=== PATIENT | male | born 1985 | race Caucasian/White ===

== ENCOUNTER 2018-07-22 10:22 | Emergency (ER) | payer SELFPAY ==
[~2018-07-22 10:22] MED LIST: CEPH-13 PO; DIGITEK; DILT60CA5 PO; DOCU-416 PO; IBUP-2707 PO; LOR5/325 PO; OMEP-137 PO; OMEP40CA48 PO; ONDA4TAB97 PO; OXYC-373 PO; POTA20PA10 PO; PRED20TA6 PO; VERA240T84 PO; [UNRECOGNIZED DRUG - CODE] PO
--- NOTE | 2018-07-22 10:38 | ER Report ---
History and Physical Time Seen By MD: 10:37 Hx. of Stated Complaint: pt reports "a tightening in his chest with rapid HR". hx svt and ablation HPI/ROS 32-year-old male with a history of multiple episodes of SVT and subsequent cardiac ablation in 2011. He presents to the emergency department complaining of the feeling of palpitations for the last week. He said none of the palpitations have felt like when he previously had episodes of SVT. However, he was worried that the ablation may have failed. He does admit to less sleep, poor diet, and increased caffeine as of late. He is working and going to school. He denies any mvno-fuv-[id number] supplements. He denies any fever, chills, or myalgias. He reports congestion for months that he thinks it is related to allergies. He also reports vague pain in his epigastric area. Has been ongoing for 1-2 weeks. He has had this previously, and has been diagnosed with esophagitis and reflux disease. He has not taken any H2 kelly or PPI. Remainder of the 14 system rev: Yes Allergies: Coded Allergies: Penicillins (Verified Allergy, Mild, 07/22/18) Home Meds No Active Prescriptions or Reported Meds Reviewed Nurses Notes: Yes Old Medical Records Reviewed: Yes Hx Smoking: No Smoking Status: Never Smoker Exposure to Second Hand Smoke?: No Hx Substance Use Disorder: No Hx Alcohol Use: Yes Constitutional Vital Sign - Last 24 Hours 07/22/18 07/22/18 07/22/18 07/22/18 10:24 10:45 10:50 11:00 Temp 97.8 Pulse 102 100 100 Resp 18 14 11 B/P (MAP) 170/84 144/88 (106) Pulse Ox 96 97 92 O2 Delivery Room Air 07/22/18 11:05 Pulse 101 Resp 17 Pulse Ox 96 Physical Exam General Appearance: The patient is alert, has no immediate need for airway protection and no current signs of toxicity. Eyes: Pupils equal and round no injection. Respiratory: Chest is non tender, lungs are clear to auscultation. Cardiac: regular rate and rhythm No murmurs/rubs/gallops Gastrointestinal: Abdomen is soft and non tender, no masses, bowel sounds nor mal. Extremities have full range of motion and are non tender. Medical Decision Making Data Points Result Diagram: 07/22/18 1029 07/22/18 1029 Laboratory Hematology Test 07/22/18 10:29 Red Blood Count 5.44 M/uL (4.00-5.60) Mean Corpuscular Volume 91.7 fL (80.0-96.0) Mean Corpuscular Hemoglobin 31.6 pg (26.0-33.0) Mean Corpuscular Hemoglobin Concent 34.5 g/dL (32.0-36.0) Red Cell Distribution Width 13.2 % (11.5-14.5) Mean Platelet Volume 8.3 fL (7.2-11.1) Neutrophils (%) (Auto) 52.7 % (39.4-72.5) Lymphocytes (%) (Auto) 34.3 % (17.6-49.6) Monocytes (%) (Auto) 9.6 % (4.1-12.4) Eosinophils (%) (Auto) 2.8 % (0.4-6.7) Basophils (%) (Auto) 0.6 % (0.3-1.4) Nucleated RBC Relative Count (auto) 0.1 /100WBC Neutrophils # (Auto) 3.5 K/uL (2.0-7.4) Lymphocytes # (Auto) 2.2 K/uL (1.3-3.6) Monocytes # (Auto) 0.6 K/uL (0.3-1.0) Eosinophils # (Auto) 0.2 K/uL (0.0-0.5) Basophils # (Auto) 0.0 K/uL (0.0-0.1) Nucleated RBC Absolute Count (auto) 0.01 K/uL Sodium Level 140 mmol/L (137-145) Potassium Level 3.5 mmol/L (3.5-5.0) Chloride Level 106 mmol/L (98-107) Carbon Dioxide Level 26 mmol/L (22-30) Blood Urea Nitrogen 12 mg/dl (9-21) Creatinine 1.00 mg/dl (0.66-1.25) Glomerular Filtration Rate Calc > 60.0 Random Glucose 113 mg/dl (75-110) Calcium Level 9.4 mg/dl (8.4-10.2) Total Bilirubin 0.6 mg/dl (0.2-1.3) Aspartate Amino Transf (AST/SGOT) 35 U/L (0-35) Alanine Aminotransferase (ALT/SGPT) 67 U/L (0-56) Alkaline Phosphatase 89 U/L (0-126) Troponin I < 0.012 ng/ml Total Protein 8.3 g/dl (6.3-8.2) Albumin 4.7 g/dl (3.5-5.0) Chemistry Test 07/22/18 10:29 White Blood Count 6.6 k/uL (4.5-11.0) Red Blood Count 5.44 M/uL (4.00-5.60) Hemoglobin 17.2 g/dL (14.0-18.0) Hematocrit 49.9 % (42.0-52.0) Mean Corpuscular Volume 91.7 fL (80.0-96.0) Mean Corpuscular Hemoglobin 31.6 pg (26.0-33.0) Mean Corpuscular Hemoglobin Concent 34.5 g/dL (32.0-36.0) Red Cell Distribution Width 13.2 % (11.5-14.5) Platelet Count 213 K/uL (150-450) Mean Platelet Volume 8.3 fL (7.2-11.1) Neutrophils (%) (Auto) 52.7 % (39.4-72.5) Lymphocytes (%) (Auto) 34.3 % (17.6-49.6) Monocytes (%) (Auto) 9.6 % (4.1-12.4) Eosinophils (%) (Auto) 2.8 % (0.4-6.7) Basophils (%) (Auto) 0.6 % (0.3-1.4) Nucleated RBC Relative Count (auto) 0.1 /100WBC Neutrophils # (Auto) 3.5 K/uL (2.0-7.4) Lymphocytes # (Auto) 2.2 K/uL (1.3-3.6) Monocytes # (Auto) 0.6 K/uL (0.3-1.0) Eosinophils # (Auto) 0.2 K/uL (0.0-0.5) Basophils # (Auto) 0.0 K/uL (0.0-0.1) Nucleated RBC Absolute Count (auto) 0.01 K/uL Glomerular Filtration Rate Calc > 60.0 Calcium Level 9.4 mg/dl (8.4-10.2) Total Bilirubin 0.6 mg/dl (0.2-1.3) Aspartate Amino Transf (AST/SGOT) 35 U/L (0-35) Alanine Aminotransferase (ALT/SGPT) 67 U/L (0-56) Alkaline Phosphatase 89 U/L (0-126) Troponin I < 0.012 ng/ml Total Protein 8.3 g/dl (6.3-8.2) Albumin 4.7 g/dl (3.5-5.0) EKG/Imaging Monitor Interpretation: Normal Sinus Rhythm Imaging 12 lead EKG: Rhythm: normal sinus rhythm [place]: normal QRS: normal ST segments: normal ED Course/Re-evaluation ED Course 32-year-old male with history of cardiac ablation secondary to SVT. No SVT today. PVCs occasionally seen on color television console monitor while at bedside. Otherwise EKG is normal. Electrolytes normal. I think his epigastric pain is from reflux disease. Not consistent with cardiac ischemia or PE. I told him that it is likely he is having PVCs from lack of sleep a poor diet and increase caffeine. I counseled him that if his symptoms were to continue, he should return the emergency Department or follow-up with a primary care physician for possible Holter monitor. Decision to Disposition Date: Jul 22, 2018 Decision to Disposition Time: 12:07 Depart Departure Latest Vital Signs Vital Signs Date Time Temp Pulse Resp B/P (MAP) Pulse Ox O2 Delivery O2 Flow Rate FiO2 07/22/18 11:05 101 17 96 07/22/18 11:00 144/88 (106) 07/22/18 10:24 97.8 Room Air Impression: Primary Impression: Palpitations Condition: Improved Disposition: HOME OR SELF-CARE New Scripts No Active Prescriptions or Reported Meds Patient Instructions: Palpitations (ED) RENÉE BRYAN MD Jul 22, 2018 10:37
[2018-07-22] MEDS ORDERED: NS(*) 0.9% 1000 ML BAG 1,000 ML IV ONE (10:40)
[2018-07-22 10:45] LABS: PLATELET COUNT, AUTOMATED 213 K/uL (150-450)
[2018-07-22 11:30] VITALS: BP 116/74
--- NOTE | 2018-07-22 13:09 | EKG ---
FACILITY: [facility] - [place] PATIENT NAME: SELENA AQUINO : [id number] MR: [id number] V: [id number] EXAM DATE: ORDERING PHYSICIAN: RENÉE BRYAN TECHNOLOGIST: Test Reason : Blood Pressure : / mmHG Vent. Rate : 097 BPM Atrial Rate : 097 BPM P-R Int : 130 ms QRS Dur : 092 ms QT Int : 354 ms P-R-T Axes : 071 020 027 degrees QTc Int : 449 ms Normal sinus rhythm Normal ECG When compared with ECG of 06-AUG-2015 21:15, No significant change was found Confirmed by JAMIA GANDHI ([id number] on 07/22/2018 1:12:17 PM Referred By: Confirmed By:JAMIA GANDHI
== END 2018-07-22 11:58 | disposition home or self-care (01) ==
LOC: ER 10:47
DX: R00.2 Palpitations (principal)
CPT/HCPCS: 84484; 85025; 93005; 96360; 99283; J7030; 82040; 82247; 82310; 82374; 82435; 82565; 82947; 84075; 84132; 84155; 84295; 84450; 84460; 84520